=== PATIENT | male | born 1970 | race Caucasian/White ===

== ENCOUNTER → 2025-01-14 16:40 | Outpatient (REF) | payer SELFPAY | LOC: RAD 16:40 | PROVIDERS: ATTENDING PHYSICIAN Internal Medicine | DX: Z71.6 Tobacco abuse counseling (principal); E11.9 Type 2 diabetes mellitus without complications; E78.2 Mixed hyperlipidemia; E66.9 Obesity, unspecified | CPT/HCPCS: 75571 ==